=== PATIENT | female | born 1990 | race Caucasian/White ===

== ENCOUNTER → 2017-08-16 09:42 | Outpatient (CLI) | payer OTHER, SELFPAY ==
--- NOTE | 2017-08-16 | DI.US.S_ITS ---
PROCEDURE: US OB >= 14 WEEKS FETUS INDICATIONS: 20 WEEK ANATOMICAL SURVEY OUTSIDE/PRIOR DATING DATA: Last menstrual period (LMP): 04/03/17. LMP-based estimated date of delivery (AMARIS): 01/08/18. First dating scan (date and location): 08/16/17. Estimated date of delivery (AMARIS) from first dating scan: 12/29/17. TECHNIQUE: Real-time scanning was performed of the fetus, with image documentation and biometric measurements. Endovaginal scanning: No COMPARISON: None. FINDINGS: General: A single living intrauterine gestation is present. Presentation: Breech Placenta: Placental position is anterior, without previa. Amniotic fluid index: 17.3 cm cm, normal range is 5-24 cm. heart rate: 152 beats per minute. Maternal cervical canal: 3.1 cm long. Normal lower limit is 2.5 cm. biometrics: Biparietal diameter: 20 weeks 3 days Head circumference: 20 weeks 1 day Abdominal circumference: 22 weeks 2 days Femur length: 19 weeks 5 days Estimated gestational age from initial scan: not applicable. Composite gestational age from present scan: 20 weeks 5 days Estimated weight and percentile: 389 g Measurement variability for biometric dating: +/- 7 days from 14 weeks to 15 weeks 6 days gestation, +/- 10 days from 16 weeks to 21 weeks 6 days gestation, +/- 2 weeks from 22 weeks to 27 weeks 6 days gestation, +/- 3 weeks for 28 weeks gestation or later. weight reference: 4500 g or EFW >90/95% is considered macrosomia or large for gestational age. EFW <10% is small for gestational age. EFW 5% or less is considered intra-uterine growth restriction. Anatomic survey: Neuro: Ventricles are non-dilated at less than 10 mm. Cisterna magna is normal at 3-11 mm. Cerebellum is normal in size and morphology. Nuchal skin fold: Normal at less than 6 mm between 14-21 weeks gestational age. Face: Nose and lips, facial profile are normal. Spine: No evidence for spina bifida. Heart: 4-chambered heart is present, with normal ventricular outflow tracts. Diaphragm: Diaphragm is intact. Stomach: Left-sided stomach is present. Kidneys: No hydronephrosis. Normal is less than 5 mm in 2nd trimester, less than 7 mm in 3rd trimester. Cord: 3-vessel cord has orthotopic insertion. Bladder: Normal in size. Extremities: All 4 extremities identified. IMPRESSION: 1. Single living IUP present with mean gestational age of 20 weeks 5 days. 2. Normal anatomy. Dictated by: Arnav DARDEN Interpreted: Mendoza Stratton MD on 08/17/2017 at 8:29 Approved by: Preston Stratton M.D. on 08/20/2017 at 13:01
== END ==
PROVIDERS: PCP Family Medicine; Visit Provider Family Medicine
DX: Z34.92 Encounter for supervision of normal pregnancy, unspecified, second trimester (principal); Z3A.20 20 weeks gestation of pregnancy
CPT/HCPCS: 76811

== ENCOUNTER → 2017-09-27 09:40 | Outpatient (CLI) | payer OTHER, SELFPAY ==
[2017-09-27 11:57] LABS: Hematocrit 36.6 % (36-46); Hemoglobin 12.5 g/dL (12.0-16.0)
[2017-09-27 12:15] LABS: GTT (PREG) 1 Hour PP 50gm Dose 90 mg/dL (76-139)
== END ==
PROVIDERS: PCP Family Medicine; Visit Provider Family Medicine
DX: Z34.90 Encounter for supervision of normal pregnancy, unspecified, unspecified trimester (principal)
CPT/HCPCS: 36415; 82950; 85014; 85018

== ENCOUNTER → 2017-12-07 14:55 | Outpatient (CLI) | payer OTHER, SELFPAY ==
[2017-12-08 16:30] LABS: Strep Grp B PCR POS for Grp B Strep
== END ==
PROVIDERS: PCP Family Medicine; Visit Provider Family Medicine
DX: Z34.93 Encounter for supervision of normal pregnancy, unspecified, third trimester (principal); Z3A.36 36 weeks gestation of pregnancy
CPT/HCPCS: 87653

== ENCOUNTER 2018-01-04 21:25 | Inpatient (IN) | payer OTHER, SELFPAY ==
[2018-01-04 22:06] LABS: Add Manual Diff / Slide Review NO; Basophils Percent Auto 0.5 % (0-2); Eosinophils Percent Auto 0.2 % (2-4); Hematocrit 36.7 % (36-46); Hemoglobin 12.5 g/dL (12.0-16.0); Lymphocytes Percent Auto 22.9 % (25-40); Mean Corpuscular Hemoglobin 29.6 PG (26-34); Mean Corpuscular Volume 87.2 fL (80-100); Neutrophils Absolute Auto 10700 /uL (3000-5900); Neutrophils Percent Auto 69.4 % (50-75); Platelet Count 190 X10^3/uL (150-400); Red Blood Cell Count 4.21 X10^6/uL (4.0-5.2); Red Cell Distribution Width 13.7 % (11.6-14.8); White Blood Cell Count 15.4 X10^3/uL (4.5-11.0)
[2018-01-04] MEDS: PENICILLIN G POTASSIUM 5,000,000 UNIT in DEXTROSE 5% IN WATER 250 ML IV (22:35)
[2018-01-04] MEDS: LACTATED RINGERS 1,000 ML 100 ML IV (22:36)
--- NOTE | 2018-01-05 01:43 | P.HPOB_ITS ---
OB HPI Date/Time Date of admission: 01/04/18 Date Patient Seen: 01/05/18 Time Patient Seen: 01:00 History of Present Condition Chief complaint: : 3 Para: 2 Estimated Date of Delivery: 01/03/18 Estimated Gestational Age (weeks): 40w2d Narrative: Irene Ramsay is a 27 year old at 40w2d who presented in active labor. The pt reports contractions starting at 7:30pm, and increasing rapidly in frequency and intensity. She denied any LOF at home or vaginal bleeding. History of Present care: good care Dating criteria: based on 1st trimester US only (LMP discordant) Ultrasounds: normal mid trimester US Obstetrical complications: none Medical complications: none Preadmission Labs Blood type: O (+) positive -: Antibody screen: negative, GBS status: positive, HBsAG: negative, HIV: negative, HSV 1: positive, HSV 2: negative and RPR/VDLR: negative -: Chlamydia screen: not detected and Gonorrhea screen: not detected -: Rubella: immune and Varicella: immune HCT: 36.6 PAP: Normal Integrated screen: negative 1 hr GTT: 90 Prior (ies) History: 10/27/11 at 40wks, 8lb8oz boy with hemorrhage 12/08/13 at 40wks, 7lb8oz boy without complications Evaluation Evaluation Baseline heart rate: 130 Variability: Moderate (11-25) monitor accelerations: Present monitor decelerations: Absent Contraction Frequency (minutes): 4 Uterine Contraction Intensity: Strong/Firm Category of Tracing: I Cervical dilation (cm): 10 Cervical effacement (%): 100 station: +2 Laboratory results: Laboratory Tests 01/04/18 01/04/18 21:50 21:50 WBC 15.4 H RBC 4.21 Hgb 12.5 Hct 36.7 MCV 87.2 MCH 29.6 MCHC 34.0 RDW 13.7 Plt Count 190 Neut % (Auto) 69.4 Lymph % (Auto) 22.9 L Brantley % (Auto) 7.0 Eos % (Auto) 0.2 L Baso % (Auto) 0.5 Neut # (Auto) 85744 H Blood Type O Positive Antibody Screen Negative PFSH Family History Grandfather Lymph node cancer Grandfather Cancer of kidney Meds Home Medications Medication Instructions Recorded Confirmed Type vit-iron fum-folic ac 1 cap PO QDAY #0 06/19/17 History [Mynatal] Allergies Allergy/AdvReac Type Severity Reaction Status Date / Time No Known Allergies Allergy Uncoded 07/11/17 12:49 Exam Const General: cooperative, healthy appearing, comfortable and well developed Resp Effort & Inspection: normal respiratory effort and able to speak in complete sentences Auscultation: clear to auscultation bilaterally Cardio Rate: regular rate Rhythm: regular rhythm Heart Sounds: no murmurs GI Palpation: soft and No tender Objective Labs Result Diagrams: 01/04/18 21:50 Labs: Laboratory Results - last 24 hr 01/04/18 01/04/18 21:50 21:50 WBC 15.4 H RBC 4.21 Hgb 12.5 Hct 36.7 MCV 87.2 MCH 29.6 MCHC 34.0 RDW 13.7 Plt Count 190 Neut % (Auto) 69.4 Lymph % (Auto) 22.9 L Brantley % (Auto) 7.0 Eos % (Auto) 0.2 L Baso % (Auto) 0.5 Neut # (Auto) 70714 H Blood Type O Positive Antibody Screen Negative Assessment and Plan (1) 40 weeks gestation of : Current visit: Yes Status: Acute Plan: Plan: 27yo at 40w2d who presented in active labor. No complications with . Rh positive, GBS positive. - Expectant management, anticipate - GBS positive, penicillin prophylaxis started at time of admission - Epidural for pain control in place and working well - FHT reassuring
--- NOTE | 2018-01-05 03:20 | P.PCNOB_ITS ---
Delivery date: 01/05/18 Intrapartal events: None Induction method: none Delivery monitor: external FHT Route of delivery: Episiotomy description: None Laceration description: Perineal - 2nd Degree Delivery repair: chromic Estimated blood loss (mL): 300 Anesthesia type: Epidural Complications: None Narrative: PROCEDURE: G 3 P 2 at 40 weeks 2 days presented in active labor and was admitted to Labor and Delivery. The patient progressed through the 1st stage over 6.5 hours. Pain was controlled with an epidural. The patient progressed through the 2nd stage over 1.5 hours and delivered a viable male with APGARs 9/9 at 2:38 via spontaneous vaginal delivery. The perineum and vagina were inspected with second-degree perineal laceration repaired with 3 -0 chromic. PREPROCEDURE DIAGNOSIS: Intrauterine at 40 weeks 2 days GBS positive RH positive POSTPROCEDURE DIAGNOSIS: Intrauterine at 40 week 2 day, delivered Same as preprocedure PROCEDURE: Spontaneous vaginal delivery LABOR AUGMENTATION: None ROM APPEARANCE: Clear BABY A DELIVERY TIME: 2:38 a.m. BABY A OUTCOME: Viable BABY A WEIGHT: 8 lb 9.53 oz (3899g) BABY A NUCHAL CORD: No BABY A CORD GASES OBTAINED: No PLACENTA DELIVERY TIME: 2:43 a.m. PLACENTA APPEARANCE: Intact Baby 1: Infant gender: Male Presentation: vertex position: Right Occiput Anterior Placenta delivery description: Spontaneous cord vessel description: 3 Vessels score (1 min): 9 score (5 min): 9 Plan for aftercare: Normal care support
[2018-01-05 04:26] VITALS: BP 120/68
[2018-01-05] MEDS: IBUPROFEN 600 MG TABLET PO (09:28)
[2018-01-05] MEDS: PRENATAL VIT,CALC/IRON/FOLIC 1 TABLET 1 TAB PO (09:29)
[2018-01-06] MEDS: PRENATAL VIT,CALC/IRON/FOLIC 1 TABLET 1 TAB PO (08:38)
--- NOTE | 2018-01-06 09:14 | PM.OBDS.1 ---
Discharge Providers Date of admission: 01/04/18 21:25 Primary care physician: Sharon Alarcon MD Consults: 01/05/18 04:43 Consult to Vegetable Harvest Worker Routine Comment: Discharge provider: Alma Mckinley MD Discharge Date: 01/06/18 Summary Date Patient Seen: 01/06/18 Time Patient Seen: 09:00 Hospital Course: The patient presented in active labor. She received an epidural for pain control. She had a spontaneous vaginal delivery of a viable baby boy weighing 8 lb 9.5 oz on 01/05/18. She was GBS positive, and received adequate penicillin prophylaxis. , there were no complications. The patient was voiding, passing flatus, and ambulating without difficulty at the time of discharge. She was breast-feeding without difficulty. Her lochia was decreasing appropriately. She is undecided regarding control, however will likely want an IUD which she has used in the past. Peripartum Data Delivery Method: Natural Vaginal Laceration description: Perineal - 2nd Degree Episiotomy description: None Procedures: Spontaneous vaginal delivery complications: none 1: Gender: Male Disposition of : home Discharge Diagnosis (1) 40 weeks gestation of : Status: Acute (2) Spontaneous vaginal delivery: Status: Acute Status at Discharge Functional status at discharge: independent ambulation Overall status at discharge: patient is progressing back to baseline Time Spent with Patient Total time spent providing and/or coordinating discharge services: Greater than 30 minutes Objective Labs Result Diagrams: 01/04/18 21:50 Discharge Plan Discharge Plan Patient Disposition: Home Discharge Med Rec/Prescriptions Prescriptions: New acetaminophen 325 mg Tablet 650 mg PO Q6HR PRN (Reason: Pain, Mild (1-3)) Qty: 30 RF: 0 benzocaine-menthol [Dermoplast (with menthol)] 20-0.5 % Aerosol 1 spray Topical Q1HR PRN (Reason: perineal pain) Qty: 15 RF: 0 ibuprofen 600 mg Tablet 600 mg PO Q6HR PRN (Reason: Pain, Mild (1-3)) Qty: 30 RF: 0 lanolin [[id number]] Cream 1 applic Topical PRN PRN (Reason: Tenderness) Qty: 15 RF: 0 Continue vit-iron fum-folic ac [Mynatal] 1 EACH capsule 1 cap PO QDAY Qty: 0 RF: 0 Follow up/Referrals: Alma Mckinley MD [Physician] - 6 Weeks Provider Discharge Instructions Diet: Regular Activity: No intercourse for 6 weeks Skin/Wound/Dressing Care Report to your healthcare provider any signs of infection, such as:: chills, fever, increased pain and unusual drainage Visit Report/Discharge Packet Instructions: DI for Labor and Delivery, Vaginal Discharge Data Primary Care Provider: Sharon Alarcon Attending Provider: Alma Mckinley Admit Date/Time: 01/04/18 21:25
--- NOTE | 2018-01-06 09:17 | P.DS_ITS ---
Discharge Providers Date of admission: 01/04/18 21:25 Primary care physician: Sharon Alarcon MD Consults: 01/05/18 04:43 Consult to Machine Precision Etcher Routine Comment: Discharge provider: Alma Mckinley MD Discharge Date: 01/06/18 Summary Date Patient Seen: 01/06/18 Time Patient Seen: 09:00 Hospital Course: The patient presented in active labor. She received an epidural for pain control. She had a spontaneous vaginal delivery of a viable baby boy weighing 8 lb 9.5 oz on 01/05/18. She was GBS positive, and received adequate penicillin prophylaxis. , there were no complications. The patient was voiding , passing flatus, and ambulating without difficulty at the time of discharge. She was breast-feeding without difficulty. Her lochia was decreasing appropriately. She is undecided regarding control, however will likely want an IUD which she has used in the past. Peripartum Data Delivery Method: Natural Vaginal Laceration description: Perineal - 2nd Degree Episiotomy description: None Procedures: Spontaneous vaginal delivery complications: none 1: Gender: Male Disposition of : home Discharge Diagnosis (1) 40 weeks gestation of : Status: Acute (2) Spontaneous vaginal delivery: Status: Acute Status at Discharge Functional status at discharge: independent ambulation Overall status at discharge: patient is progressing back to baseline Time Spent with Patient Total time spent providing and/or coordinating discharge services: Greater than 30 minutes Objective Labs Result Diagrams: 01/04/18 21:50 Discharge Plan Discharge Plan Patient Disposition: Home Discharge Med Rec/Prescriptions Prescriptions: New acetaminophen 325 mg Tablet 650 mg PO Q6HR PRN (Reason: Pain, Mild (1-3)) Qty: 30 RF: 0 benzocaine-menthol [Dermoplast (with menthol)] 20-0.5 % Aerosol 1 spray Topical Q1HR PRN (Reason: perineal pain) Qty: 15 RF: 0 ibuprofen 600 mg Tablet 600 mg PO Q6HR PRN (Reason: Pain, Mild (1-3)) Qty: 30 RF: 0 lanolin [[id number]] Cream 1 applic Topical PRN PRN (Reason: Tenderness) Qty: 15 RF: 0 Continue vit-iron fum-folic ac [Mynatal] 1 EACH capsule 1 cap PO QDAY Qty: 0 RF: 0 Follow up/Referrals: Alma Mckinley MD [Physician] - 6 Weeks Provider Discharge Instructions Diet: Regular Activity: No intercourse for 6 weeks Skin/Wound/Dressing Care Report to your healthcare provider any signs of infection, such as:: chills, fever, increased pain and unusual drainage Visit Report/Discharge Packet Instructions: DI for Labor and Delivery, Vaginal Discharge Data Primary Care Provider: Sharon Alarcon Attending Provider: Alma Mckinley Admit Date/Time: 01/04/18 21:25
[2018-01-06 09:32] VITALS: BP 120/73; PULSE 82; RESP 16; TEMP 36.3
== END 2018-01-06 10:50 | disposition home or self-care (01) | DRG 807 ==
PROVIDERS: Admitting Provider Family Medicine; PCP Family Medicine; Visit Provider Family Medicine
DX: O99.824 Streptococcus B carrier state complicating childbirth (principal); Z37.0 Single live birth; Z3A.40 40 weeks gestation of pregnancy; O70.1 Second degree perineal laceration during delivery
CPT/HCPCS: 01967; 59050; 59400; 85025; 86850; 86900; 86901; G0379; J2540

== ENCOUNTER → 2019-10-17 12:18 | Outpatient (CLI) | payer OTHER, SELFPAY ==
--- NOTE | 2019-10-17 12:19 | DI.US.S_ITS ---
PROCEDURE: US OB LIMITED INDICATIONS: DATES OUTSIDE/PRIOR DATING DATA: Last menstrual period (LMP): 07/07/2019. LMP-based estimated date of delivery (AMARIS): 04/12/2020 . First dating scan (date and location): 10/17/2019 . Estimated date of delivery (AMARIS) from first dating scan: 04/09/2020 . TECHNIQUE: Real-time scanning was performed of the fetus, with image documentation and biometric measurements. Endovaginal scanning: No COMPARISON: [facility], [facility], 10/27/2011, 7:59. FINDINGS: General: A single living intrauterine gestation is present. Presentation: Vertex. Placenta: Placental position is anterior , without previa. Amniotic fluid index: Subjectively normal. heart rate: 145 beats per minute. Maternal cervical canal: 3.2 cm long. Normal lower limit is 2.5 cm. biometrics: Biparietal diameter: 14 weeks 6 days Head circumference: 15 weeks 1 day Abdominal circumference: 15 weeks 4 days Femur length: 14 weeks 3 days Estimated gestational age from initial scan: not applicable. Composite gestational age from present scan: 15 weeks 0 days Estimated weight and percentile: N/a Measurement variability for biometric dating: +/- 7 days from 14 weeks to 15 weeks 6 days gestation, +/- 10 days from 16 weeks to 21 weeks 6 days gestation, +/- 2 weeks from 22 weeks to 27 weeks 6 days gestation, +/- 3 weeks for 28 weeks gestation or later. weight reference: 4500 g or EFW >90/95% is considered macrosomia or large for gestational age. EFW <10% is small for gestational age. EFW 5% or less is considered intra-uterine growth restriction. Other: Not applicable. IMPRESSION: Single living IUP with mean composite gestational age of 15 weeks corresponding to ultrasound AMARIS of 04/09/2020. Follow-up anatomic survey recommended. Dictated by: Arnav DARDEN Interpreted: Ema Alaniz MD on 10/17/2019 at 13:14 Approved by: Ema Alaniz M.D. on 10/17/2019 at 15:17
== END ==
PROVIDERS: PCP Family Medicine; Referring Provider Family Medicine; Visit Provider Family Medicine
DX: Z36.87 Encounter for antenatal screening for uncertain dates (principal); Z3A.15 15 weeks gestation of pregnancy
CPT/HCPCS: 76815

== ENCOUNTER → 2019-10-20 14:49 | Outpatient (CLI) | payer OTHER, SELFPAY ==
[2019-10-20 17:48] LABS: Add Manual Diff / Slide Review NO; Basophils Absolute Auto 0 /uL (0-100); Basophils Percent Auto 0.4 % (0-2); Eosinophils Absolute Auto 100 /uL (0-450); Eosinophils Percent Auto 0.8 % (2-4); Hemoglobin 12.3 g/dL (12.0-16.0); Lymphocytes Absolute Auto 2100 /uL (1100-4500); Lymphocytes Percent Auto 21.2 % (25-40); Mean Corpuscular HGB Conc 35.2 % (30-36); Monocytes Absolute Auto 600 /uL (0-900); Monocytes Percent Auto 6.1 % (3-14); Neutrophils Absolute Auto 7000 /uL (1500-7000); Neutrophils Percent Auto 71.5 % (50-75); Platelet Count 202 X10^3/uL (150-400); Red Blood Cell Count 3.98 X10^6/uL (4.0-5.2); Red Cell Distribution Width 13.2 % (11.6-14.8); White Blood Cell Count 9.8 X10^3/uL (4.5-11.0)
[2019-10-20 19:11] LABS: Hepatitis B Surface Antigen NEGATIVE s/c (NEGATIVE); Rubella Antibody IgG 16.6 IU/mL (>15)
[2019-10-20 19:28] LABS: HIV 1 & 2 Ab/Ag 4th Gen Combo NEGATIVE (NEGATIVE); Hep C Virus Ab w/Reflex Quant NEGATIVE s/c (NEGATIVE)
[2019-10-20 19:42] LABS: Appearance Urine UA CLEAR; Bilirubin Urine UA NEGATIVE (NEGATIVE); Color Urine UA YELLOW; Glucose Urine UA NEGATIVE (Negative); Ketones Urine UA NEGATIVE (NEGATIVE); Leukocyte Esterase Urine UA NEGATIVE (NEGATIVE); Nitrite Urine UA NEGATIVE (Negative); Occult Blood Urine UA NEGATIVE (Negative); Protein Urine UA NEGATIVE (Negative); Specific Gravity Urine UA >=1.030 (1.000-1.035); Urobilinogen Urine UA 0.2 E.U./dL (0.2)
[2019-10-21 04:36] LABS: RPR Screen Non Reactive (Non Reactive)
[2019-10-21 05:13] LABS: Varicella IgG Antibody 1478 index (Immune >165)
== END ==
PROVIDERS: PCP Family Medicine; Referring Provider Family Medicine; Visit Provider Family Medicine
DX: Z34.82 Encounter for supervision of other normal pregnancy, second trimester (principal)
CPT/HCPCS: 36415; 80055; 81003; 86787; 86803; 86850; 86900; 86901; 87086; 87389

== ENCOUNTER → 2019-11-27 12:40 | Outpatient (CLI) | payer OTHER, SELFPAY ==
--- NOTE | 2019-11-27 12:41 | DI.US.S_ITS ---
PROCEDURE: US OB >= 14 WEEKS FETUS INDICATIONS: ANATOMY SCAN OUTSIDE/PRIOR DATING DATA: Last menstrual period (LMP): 07/07/19. LMP-based estimated date of delivery (AMARIS): 04/12/20 . First dating scan (date and location): 10/17/19 . Estimated date of delivery (AMARIS) from first dating scan: 04/09/20 . TECHNIQUE: Real-time scanning was performed of the fetus, with image documentation and biometric measurements. Endovaginal scanning: Not needed COMPARISON: [facility], OB >= 14 WEEKS FETUS, 08/16/2017, 9:57. FINDINGS: General: A single living intrauterine gestation is present. Presentation: Vertex. Placenta: Placental position is anterior, without previa. Amniotic fluid index: 13.8 cm, normal range is 5-24 cm. heart rate: 150 beats per minute. Maternal cervical canal: 3.5 cm long. Normal lower limit is 2.5 cm. biometrics: Biparietal diameter: 5.0 cm, 21 weeks 1 day Head circumference: 19.7 cm, 21 weeks 0 days Abdominal circumference: 15.7 cm, 20 weeks 6 days Femur length: 3.4 cm, 20 weeks 3 days Estimated gestational age from initial scan: 20 weeks 6 days Composite gestational age from present scan: 20 weeks 6 days Estimated weight and percentile: 373 g, 38th percentile Anatomic survey: Neuro: Ventricles are non-dilated at less than 10 mm. Cisterna magna is normal at 3-11 mm. Cerebellum is normal in size and morphology. Nuchal skin fold: Normal at less than 6 mm between 14-21 weeks gestational age. Face: Nose and lips, facial profile are normal. Spine: No evidence for spina bifida. Heart: 4-chambered heart is present, with normal ventricular outflow tracts. Diaphragm: Diaphragm is intact. Stomach: Left-sided stomach is present. Kidneys: No hydronephrosis. Normal is less than 5 mm in 2nd trimester, less than 7 mm in 3rd trimester. Cord: 3-vessel cord has orthotopic insertion. Bladder: Normal in size. Extremities: All 4 extremities identified. IMPRESSION: Single living intrauterine gestation with normal survey of anatomy and appropriate interval growth. The delivery date is projected to be centered on 04/09/20. Dictated by: Anatoliy Ozuna M.D. on 11/27/2019 at 14:01 Approved by: Anatoliy Ozuna M.D. on 11/27/2019 at 14:08
== END ==
PROVIDERS: PCP Family Medicine; Referring Provider Family Medicine; Visit Provider Family Medicine
DX: Z36.89 Encounter for other specified antenatal screening (principal); Z3A.20 20 weeks gestation of pregnancy
CPT/HCPCS: 76811

== ENCOUNTER → 2020-01-21 15:40 | Outpatient (CLI) | payer OTHER, SELFPAY ==
--- NOTE | 2020-01-21 15:41 | DI.US.S_ITS ---
PROCEDURE: US OB LIMITED INDICATIONS: size > dates, growth and INOCENCIO OUTSIDE/PRIOR DATING DATA: Last menstrual period (LMP): 07/07/19. LMP-based estimated date of delivery (AMARIS): 04/12/20 First dating scan (date and location): 10/17/19 Estimated date of delivery (AMARIS) from first dating scan: 04/09/20 TECHNIQUE: Real-time scanning was performed of the fetus, with image documentation and biometric measurements. Endovaginal scanning: Not needed COMPARISON: [facility], OB LIMITED, 10/17/2019, 12:27. [facility], [facility], 10/27/2011, 7:59. FINDINGS: General: A single living intrauterine gestation is present. Presentation: Vertex. Placenta: Placental position is anterior , without previa. Amniotic fluid index: 15.6 cm, normal range is 5-24 cm. heart rate: 155 beats per minute. Maternal cervical canal: 4.1 cm long. Normal lower limit is 2.5 cm. biometrics: Biparietal diameter: 7.3 cm, 29 weeks 3 days Head circumference: 26.8 cm, 29 weeks 2 days Abdominal circumference: 24.9 cm, 29 weeks 1 day Femur length: 5.6 cm, 29 weeks 2 days Estimated gestational age from initial scan: 28 weeks 5 days. Composite gestational age from present scan: 29 weeks 2 days Estimated weight and percentile: 1357 g, 57th percentile Measurement variability for biometric dating: +/- 7 days from 14 weeks to 15 weeks 6 days gestation, +/- 10 days from 16 weeks to 21 weeks 6 days gestation, +/- 2 weeks from 22 weeks to 27 weeks 6 days gestation, +/- 3 weeks for 28 weeks gestation or later. weight reference: 4500 g or EFW >90/95% is considered macrosomia or large for gestational age. EFW <10% is small for gestational age. EFW 5% or less is considered intra-uterine growth restriction. Other: Not applicable. IMPRESSION: Appropriate interval growth, no anomaly seen. Normal amniotic fluid volume. The estimated gestational age from 1st OB ultrasound and the current study are within measurement variability. The delivery date is projected to be centered on 04/09/20. Dictated by: Anatoliy Ozuna M.D. on 01/21/2020 at 17:15 Approved by: Anatoliy Ozuna M.D. on 01/21/2020 at 17:18
[2020-01-21 18:03] LABS: Hemoglobin 11.7 g/dL (12.0-16.0)
[2020-01-21 18:15] LABS: GTT (PREG) 1 Hour PP 50gm Dose 82 mg/dL (76-139)
== END ==
PROVIDERS: PCP Family Medicine; Referring Provider Family Medicine; Visit Provider Family Medicine
DX: O26.843 Uterine size-date discrepancy, third trimester (principal); Z3A.29 29 weeks gestation of pregnancy
CPT/HCPCS: 36415; 76815; 82950; 85014; 85018

== ENCOUNTER → 2020-03-16 12:53 | Outpatient (CLI) | payer OTHER, SELFPAY ==
--- NOTE | 2020-03-16 12:54 | DI.US.S_ITS ---
PROCEDURE: US OB LIMITED INDICATIONS: growth u/s, size < dates OUTSIDE/PRIOR DATING DATA: Last menstrual period (LMP): 07/07/2019. LMP-based estimated date of delivery (AMARIS): 04/12/2020 . First dating scan (date and location): 10/17/2019 . Estimated date of delivery (AMARIS) from first dating scan: 04/09/2020 . TECHNIQUE: Real-time scanning was performed of the fetus, with image documentation and biometric measurements. Endovaginal scanning: No COMPARISON: [facility], OB LIMITED, 01/21/2020, 16:04. FINDINGS: General: A single living intrauterine gestation is present. Presentation: Vertex. Placenta: Placental position is anterior , without previa. Amniotic fluid index: 23.0 cm, normal range is 5-24 cm. heart rate: 131 beats per minute. Maternal cervical canal: Not well seen. biometrics: Biparietal diameter: 37 weeks 6 days Head circumference: 38 weeks 1 day Abdominal circumference: 39 weeks 2 days Femur length: 37 weeks 5 days Estimated gestational age from initial scan: 36 weeks 4 days Composite gestational age from present scan: 38 weeks 2 days Estimated weight and percentile: 3553 g; 95th percentile Measurement variability for biometric dating: +/- 7 days from 14 weeks to 15 weeks 6 days gestation, +/- 10 days from 16 weeks to 21 weeks 6 days gestation, +/- 2 weeks from 22 weeks to 27 weeks 6 days gestation, +/- 3 weeks for 28 weeks gestation or later. weight reference: 4500 g or EFW >90/95% is considered macrosomia or large for gestational age. EFW <10% is small for gestational age. EFW 5% or less is considered intra-uterine growth restriction. Other: Not applicable. IMPRESSION: Single living fetus redemonstrated and interval growth is greater than normal with estimated weight 95th percentile. Macrosomia cannot be excluded. Amniotic fluid index at the upper limits of normal. Dictated by: Arnav DARDEN Interpreted: Tricia Mcintyre MD on 03/16/2020 at 15:37 Approved by: Tricia Mcintyre M.D. on 03/16/2020 at 16:27
== END ==
PROVIDERS: PCP Family Medicine; Referring Provider Family Medicine; Visit Provider Family Medicine
DX: O26.843 Uterine size-date discrepancy, third trimester (principal); Z3A.38 38 weeks gestation of pregnancy
CPT/HCPCS: 76815

== ENCOUNTER → 2020-03-19 15:03 | Outpatient (CLI) | payer OTHER, SELFPAY ==
[2020-03-20 15:01] LABS: Strep Grp B PCR POS for Grp B Strep
== END ==
PROVIDERS: PCP Family Medicine; Visit Provider Family Medicine
DX: Z34.83 Encounter for supervision of other normal pregnancy, third trimester (principal); Z3A.36 36 weeks gestation of pregnancy
CPT/HCPCS: 87653

== ENCOUNTER → 2020-04-01 09:48 | Outpatient (CLI) | payer OTHER, SELFPAY ==
--- NOTE | 2020-04-01 09:51 | DI.US.S_ITS ---
PROCEDURE: US OB LIMITED INDICATIONS: LARGE FOR GESTATIONAL AGE OUTSIDE/PRIOR DATING DATA: Last menstrual period (LMP): 07/07/2019. LMP-based estimated date of delivery (AMARIS): 04/12/2020 . First dating scan (date and location): 10/17/2019 . Estimated date of delivery (AMARIS) from first dating scan: 04/09/2020 . TECHNIQUE: Real-time scanning was performed of the fetus, with image documentation and biometric measurements. Endovaginal scanning: No COMPARISON: [facility], OB LIMITED, 03/16/2020, 13:12. FINDINGS: General: A single living intrauterine gestation is present. Presentation: Vertex. Placenta: Placental position is anterior , without previa. Amniotic fluid index: 21.7 cm, normal range is 5-24 cm. heart rate: 128 beats per minute. Maternal cervical canal: 3.6 cm long. Normal lower limit is 2.5 cm. biometrics: Biparietal diameter: 41 weeks 4 days Head circumference: Greater than 41 weeks. Abdominal circumference: 38 weeks 6 days Femur length: 36 weeks 5 days Estimated gestational age from initial scan: 38 weeks 6 days Composite gestational age from present scan: 39 weeks Estimated weight and percentile: 3769 g; 80th percentile Measurement variability for biometric dating: +/- 7 days from 14 weeks to 15 weeks 6 days gestation, +/- 10 days from 16 weeks to 21 weeks 6 days gestation, +/- 2 weeks from 22 weeks to 27 weeks 6 days gestation, +/- 3 weeks for 28 weeks gestation or later. weight reference: 4500 g or EFW >90/95% is considered macrosomia or large for gestational age. EFW <10% is small for gestational age. EFW 5% or less is considered intra-uterine growth restriction. Other: Not applicable. IMPRESSION: 1. Single living IUP redemonstrated and interval growth is upper limits of normal. Dictated by: Arnav Westfall [facility] Interpreted: Ema Alaniz MD on 04/01/2020 at 11:51 Approved by: Ema Alaniz M.D. on 04/01/2020 at 12:20
== END ==
PROVIDERS: PCP Family Medicine; Referring Provider Family Medicine; Visit Provider Family Medicine
DX: Z36.88 Encounter for antenatal screening for fetal macrosomia (principal); Z3A.38 38 weeks gestation of pregnancy
CPT/HCPCS: 76815

== ENCOUNTER 2020-04-16 07:34 | Inpatient (IN) | payer OTHER, SELFPAY ==
[2020-04-16] MEDS: PENICILLIN G POTASSIUM 5,000,000 UNIT in DEXTROSE 5% IN WATER 250 ML IV (08:38)
[2020-04-16] MEDS: LACTATED RINGERS 1,000 ML 100 ML IV ×2 (08:38→14:19)
[2020-04-16 08:44] LABS: Add Manual Diff / Slide Review NO; Basophils Absolute Auto 100 /uL (0-100); Basophils Percent Auto 0.5 % (0-2); Eosinophils Absolute Auto 100 /uL (0-450); Eosinophils Percent Auto 0.6 % (2-4); Hematocrit 35.6 % (36-46); Lymphocytes Absolute Auto 2000 /uL (1100-4500); Lymphocytes Percent Auto 18.2 % (25-40); Mean Corpuscular HGB Conc 33.6 % (30-36); Mean Corpuscular Hemoglobin 30.5 PG (26-34); Mean Corpuscular Volume 90.8 fL (80-100); Monocytes Absolute Auto 700 /uL (0-900); Monocytes Percent Auto 6.5 % (3-14); Neutrophils Absolute Auto 8200 /uL (1500-7000); Neutrophils Percent Auto 74.2 % (50-75); Platelet Count 189 X10^3/uL (150-400); Red Blood Cell Count 3.92 X10^6/uL (4.0-5.2); Red Cell Distribution Width 13.4 % (11.6-14.8); White Blood Cell Count 11.1 X10^3/uL (4.5-11.0)
[2020-04-16 08:58] LABS: COVID19 -Nasal RAPID Negative (Negative)
[2020-04-16] MEDS: OXYTOCIN PREMIX 30 UNIT/500 ML PLAST..BAG IV (09:43)
[2020-04-16 11:58] VITALS: BP 113/70
[2020-04-16] MEDS: PENICILLIN G POTASSIUM 3,000,000 UNIT/50 ML FROZ.PIGGY 100 UNIT IV (12:47)
--- NOTE | 2020-04-16 12:50 | PM.OBPNLAB ---
Date/Time Date Patient Seen: 04/16/20 Time Patient Seen: 12:50 Pain Control Pain control: tolerating well Pelvic Exam Dilation (cm): 4 Effacement (%): 90 station: 0 Amniotic membrane status: Ruptured Comments: After informed consent, AROM performed with production of clear fluid. Contractions Monitor mode: External Pitocin rate (mU/min): 9 Contraction frequency (min): 4 Contraction pattern: Irregular Contraction intensity: Moderate Status status: Category l Heart Rate Baseline: 130 Monitor Accelerations: Present Monitor Decelerations: Absent Monitor Variability: Moderate Assessment and Plan Comments: 30yo at 40w4d here for elective post-dates IOL. No complications with . AROM with clear fluid present. Rh positive, GBS positive. - Expectant management, anticipate - GBS positive, continue penicillin prophylaxis - Continue pitocin, titrate as tolerated - FHT reassuring - Epidural when desired
--- NOTE | 2020-04-16 13:08 | P.HPOB_ITS ---
OB HPI Date/Time Date of admission: 04/16/20 Date Patient Seen: 04/16/20 Time Patient Seen: 07:45 History of Present Condition Chief complaint: Induction : 4 Para: 3 Estimated Date of Delivery: 04/12/20 Estimated Gestational Age (weeks): 40w4d Narrative: Irene Ramsay is a 30 year old at 40w4d here for elective post-dates IOL. The pt reports mild cramping, no regular contractions, vaginal bleeding, or LOF. She has been feeling well. Her has been uncomplicated. Indications Indication for induction OB: post dates History of Present care: initiated at week # (15) and pounds weight gain (38) Dating criteria: LMP confirmed by 1st trimester US Preadmission Labs Blood type: O (+) positive -: Antibody screen: negative, GBS status: positive, HBsAG: negative, HIV: ne gative and RPR/VDLR: negative -: Rubella: immune and Varicella: immune HCT: 35.6 HCAB: negative 1 hr GTT: 82 Prior (ies) History: 10/27/11 - 40wks, , 8lb8oz male 12/08/13 - 40wks, , 7lb8oz male 01/15/18 - 40w2d, , 8lb9oz male Evaluation Evaluation Baseline heart rate: 130 Variability: Moderate (11-25) monitor accelerations: Present monitor decelerations: Absent Status: Category l Cervical dilation (cm): 3 Cervical effacement (%): 50 station: 0 Laboratory results: Laboratory Tests 04/16/20 04/16/20 04/16/20 08:20 08:20 08:20 WBC 11.1 H RBC 3.92 L Hgb 12.0 Hct 35.6 L MCV 90.8 MCH 30.5 MCHC 33.6 RDW 13.4 Plt Count 189 Neut % (Auto) 74.2 Lymph % (Auto) 18.2 L [place] % (Auto) 6.5 Eos % (Auto) 0.6 L Baso % (Auto) 0.5 Neut # (Auto) 8200 H Lymph # (Auto) 2000 [place] # (Auto) 700 Eos # (Auto) 100 Baso # (Auto) 100 SARS-CoV-2 (PCR) Negative Blood Type O Positive Antibody Screen Negative PFSH Medical History (Updated 03/19/20 @ 15:35 by Alma Mckinley MD) HSV-1 (herpes simplex virus 1) infection Migraine (spontaneous vaginal delivery) (~10/27/11) UTI (urinary tract infection) Family History Grandfather Lymph node cancer Grandfather Cancer of kidney Social History (System 02/06/18 @ 08:58 by Kyle Sanderson) marital status: number of children: 3 household members: spouse and children occupational status: unemployed current occupational exposures/hazards: No Smoking Status: Never smoker Meds Home Medications and Allergies Home Medications Medication Instructions Recorded Confirmed Type Mynatal 1 cap PO QDAY #0 06/19/17 04/16/20 History Allergies Allergy/AdvReac Type Severity Reaction Status Date / Time No Known Allergies Allergy Unknown Uncoded 04/16/20 12:01 Exam Vital Signs (past 8 hours): - 04/16/20 11:58 Blood Pressure 113/70 Const General: cooperative, healthy appearing and comfortable Orientation: alert, awake and oriented x3 Resp Effort & Inspection: normal respiratory effort Auscultation: clear to auscultation bilaterally Cardio Rate: regular rate Rhythm: regular rhythm Heart Sounds: S1 normal, S2 normal and no murmurs GI Inspection: non-distended Palpation: soft and No tender Other: gravid Presentation: vertex Estimated Weight (lbs): 9 Extrem General: no clubbing, cyanosis or edema Objective Labs Result Diagrams: 04/16/20 08:20 Labs: Laboratory Results - last 24 hr 04/16/20 04/16/20 04/16/20 08:20 08:20 08:20 WBC 11.1 H RBC 3.92 L Hgb 12.0 Hct 35.6 L MCV 90.8 MCH 30.5 MCHC 33.6 RDW 13.4 Plt Count 189 Neut % (Auto) 74.2 Lymph % (Auto) 18.2 L [place] % (Auto) 6.5 Eos % (Auto) 0.6 L Baso % (Auto) 0.5 Neut # (Auto) 8200 H Lymph # (Auto) 2000 [place] # (Auto) 700 Eos # (Auto) 100 Baso # (Auto) 100 SARS-CoV-2 (PCR) Negative Blood Type O Positive Antibody Screen Negative Assessment and Plan Assessment and Plan Assessment and Plan narrative: 30yo at 40w4d here for elective post-dates IOL. No complications with . Rh positive, GBS positive. - Expectant management, anticipate - GBS positive, start penicillin prophylaxis now - Start pitocin, titrate as tolerated. Plan to AROM once GBS prophylaxis adequate. - FHT reassuring - Epidural when desired
[2020-04-16] MEDS: FENT 2MCG/ML BUPIV 0.125% EPI 200 MCG/100 ML PLAST..BAG 12 MCG EPIDURAL (14:11)
[2020-04-16] MEDS: fentaNYL 100 MCG/2 ML INJ (14:20)
--- NOTE | 2020-04-16 17:08 | PM.OBPRVD ---
Labor & Delivery Delivery date: 04/16/20 Intrapartal events: None Estimated blood loss (mL): 400 Complications: None Narrative: PROCEDURE: at 40w4d presented for elective post-dates IOL and was admitted to Labor and Delivery. The patient progressed through the 1st stage over 3 hours. Pitocin was initiated. The pt received adequate GBS prophylaxis with penicillin, and AROM was performed with production of clear fluid. Pain was controlled with an epidural. The patient progressed through the 2nd stage over 30 minutes and delivered a viable male infant with APGARs 9/9 at 16:29 via . The perineum and vagina were inspected with 2nd degree laceration repaired with 2-O Chromic. PREPROCEDURE DIAGNOSIS: Intrauterine at 40w4d GBS positive RH positive POSTPROCEDURE DIAGNOSIS: Intrauterine at 40w4d, delivered Same as preprocedure PROCEDURE: Spontaneous vaginal delivery INDUCTION: Yes LABOR AUGMENTATION: Pitocin, AROM ROM APPEARANCE: Clear BABY A DELIVERY TIME: 16:29 BABY A OUTCOME: Viable BABY A SEX: Male BABY A WEIGHT: 9lb2.2oz BABY A PRESENTATION: Vertex BABY A POSITION: OA BABY A NUCHAL CORD: None BABY A # CORD VESSELS: 3 BABY A CORD GASES OBTAINED: No PLACENTA DELIVERY TIME: 16:34 PLACENTAL DELIVERY TYPE: Spontaneous PLACENTA APPEARANCE: Intact Baby 1: Infant gender: Male score (1 min): 9 score (5 min): 9 Plan for aftercare: Normal care
[2020-04-16] MEDS: LANOLIN OINT 7 GM 1 APPLIC TOP (19:23)
[2020-04-17] MEDS: PRENATAL VIT,CALC/IRON/FOLIC 1 TABLET 1 TAB PO (09:18)
[2020-04-17] MEDS: DOCUSATE 100 MG CAPSULE PO (09:18)
--- NOTE | 2020-04-17 10:43 | P.DS_ITS ---
Discharge Providers Provider Date of admission: 04/16/20 07:34 Discharge Date: 04/17/20 Primary care physician: Alma Mckinley MD Consults: 04/17/20 17:07 Consult to Electric Track Switch Maintainer Routine Comment: Discharge provider: Alma Mckinley MD Summary Hospital Course Date Patient Seen: 04/17/20 Time Patient Seen: 10:43 Procedures: Spontaneous vaginal delivery Hospital Course: The patient was admitted for elective induction of labor for post dates. She received Pitocin. GBS prophylaxis was given with penicillin. AROM was performed with production of clear fluid. The patient progressed to complete and had spontaneous vaginal delivery of a viable baby boy on 04/16/2020. There were no complications with delivery. A 2nd degree perineal laceration was repaired. , there were no complications. The patient was voiding, ambulating, passing flatus without difficulty at discharge. Her lochia was decreasing appropriately. Her pain was adequately controlled. She is breast- feeding with good latch. She will follow-up for her 6 week check. She desires an IUD for contraception. Peripartum Data Delivery Method: Natural Vaginal Laceration Description: Perineal - 2nd Degree Episiotomy description: None Procedures: Spontaneous vaginal delivery complications: none [place] 1: Gender: Male Disposition of : home Discharge Diagnosis (1) (spontaneous vaginal delivery): Status: Acute Problem Details: 12/08/2013 and 01/15/18 Time Spent with Patient Time attestation: Total time spent providing and/or coordinating discharge services: Objective Labs Result Diagrams: 04/16/20 08:20 Exam Narrative Exam Narrative: Gen: NAD, sitting comfortably in bed, appears well CV: RRR, no murmurs Resp: clear to auscultation bilaterally Abd: soft, appropriately tender, fundus firm and below the umbilicus, nondistended Ext: no edema Resp Auscultation: clear to auscultation bilaterally Cardio Rate: regular rate Rhythm: regular rhythm Heart Sounds: S1 normal, S2 normal and no murmurs GI Inspection: non-distended Palpation: soft, No guarding and tender (appropriately tender) Auscultation: normal bowel sounds Other: fundus firm and below the umbilicus Extrem Right upper extremity: no edema Discharge Plan Discharge Plan Patient Disposition: Home Discharge orders & Medications Prescriptions: Continued Mynatal 1 EACH capsule 1 cap PO QDAY Qty: 0 RF: 0 Follow up/Referrals: Alma Mckinley MD [Primary Care Provider] - 6 Weeks Diet/Activity/Treatments Diet: Diet as Tolerated and Regular Skin/Wound/Dressing Care Report to your healthcare provider any signs of infection, such as:: chills, fever, increased pain and unusual drainage Visit Report/Discharge Packet Instructions: DI for Labor and Delivery, Vaginal Stand Alone Forms: Discharge: Care Visit Report Forms: Patient Portal/API, Stroke Signs & Symptoms Discharge Data Primary Care Provider: lAma Mckinley
[2020-04-17 16:14] VITALS: BP 118/71; PULSE 68; RESP 16; TEMP 36.4
== END 2020-04-17 17:25 | disposition home or self-care (01) | DRG 806 ==
PROVIDERS: Admitting Provider Family Medicine; PCP Family Medicine; Referring Provider Family Medicine; Visit Provider Family Medicine
DX: O48.0 Post-term pregnancy (principal); O98.32 Other infections with a predominantly sexual mode of transmission complicating childbirth; Z37.0 Single live birth; B00.9 Herpesviral infection, unspecified; Z3A.40 40 weeks gestation of pregnancy; O99.824 Streptococcus B carrier state complicating childbirth; O70.1 Second degree perineal laceration during delivery; Z20.822 Contact with and (suspected) exposure to COVID-19
CPT/HCPCS: 01967; 36415; 59050; 59400; 85025; 86850; 86900; 86901; 87635; C9803; G0379; J2540; J2590; J3010

== ENCOUNTER → 2021-10-17 16:41 | Outpatient (CLI) | payer OTHER, SELFPAY | PROVIDERS: PCP Family Medicine; Visit Provider Physician Assistant | DX: R30.0 Dysuria (principal) | CPT/HCPCS: 87077; 87086; 87186 ==

== ENCOUNTER → 2021-10-27 07:19 | Outpatient (CLI) | payer OTHER, SELFPAY | PROVIDERS: PCP Family Medicine; Visit Provider Physician Assistant | DX: N39.0 Urinary tract infection, site not specified (principal) | CPT/HCPCS: 87077; 87086; 87186 ==

== ENCOUNTER 2022-11-23 12:03 | Day surgery (SDC) | payer OTHER, SELFPAY ==
[2022-11-23] VITALS (7 sets, daily range): BP systolic 86–121; BP diastolic 53–81; PULSE 50–63; RESP 12–17; TEMP 36.6; O2SAT 98–100; BMI 22.6
--- NOTE | 2022-11-23 | PATH_ITS ---
[facility] Accession Number: [id number] No. of containers..06 Tissue . 01 Material submitted: . PART A: duodenum - DUODENUM PART B: stomach - ANTRUM PART C: ileum - TERMINAL ILEUM PART D: colon - RIGHT COLON PART E: colon - LEFT COLON PART F: rectum - RECTUM . 01 Diagnosis: A. DUODENUM, BIOPSY: - DUODENAL MUCOSA WITH REACTIVE CHANGES SUGGESTIVE OF PEPTIC DUODENITIS AND CANNOT RULE OUT CELIAC DISEASE, (SEE COMMENT) - NO H. PYLORI LIKE ORGANISMS IDENTIFIED (BY THE H/E AND IMMUNOHISTOCHEMICAL STAINED SLIDE SECTIONS) - NO DYSPLASIA OR MALIGNANCY IDENTIFIED --- . B: STOMACH, ANTRUM, BIOPSY: - ANTRAL GASTRIC MUCOSA, WITH NO HISTOLOGIC ABNORMALITIES - NO H. PYLORI LIKE ORGANISMS IDENTIFIED (ON THE H/E STAINED SECTIONS) - NEGATIVE FOR GASTRITIS, INTESTINAL METAPLASIA, DYSPLASIA OR MALIGNANCY --- C. TERMINAL ILEUM, BIOPSY: - BENIGN SMALL INTESTINAL MUCOSA WITH UNREMARKABLE LYMPHOID AGGREGATE - NEGATIVE FOR CHRONIC OR ACTIVE ILEITIS --- D. COLON, RIGHT, BIOPSY: - COLONIC MUCOSA WITH FOCALLY INCREASED INTRAEPITHELIAL LYMPHOCYTES. SEE COMMENT. --- E. COLON, LEFT, BIOPSY: - COLONIC MUCOSA WITH FOCALLY INCREASED INTRAEPITHELIAL LYMPHOCYTES. SEE COMMENT. --- F. RECTUM, BIOPSY: - BENIGN COLONIC MUCOSA - NEGATIVE FOR MICROSCOPIC COLITIS --- COMMENT FOR PART A: Duodenal mucosa with focal reactive changes including mild villous blunting, prominent Vanesa's glands, and focal gastric foveolar metaplasia. There is also a slight increase in cellularity of the lamina propria, with a mixed chronic inflammatory infiltrate. There is mild increase in intraepithelial lymphocytes seen, and cannot rule out celiac disease. These features are not specific but raise suspicion of celiac disease therefore correlation with serologic studies is recommended. No Giardia or other infectious organisms are identified. H. pylori immunohistochemical stain was performed on part A and is negative. --- COMMENT FOR PART D AND E: Colonic mucosa with intact crypt architecture and no active neutrophilic inflammation. In some areas there is an increase in intraepithelial lymphocytes in the surface and crypt epithelium and mild reactive epithelial changes. There is no apparent thickening of the subepithelial collagen table. The histologic differential includes lymphocytic colitis, a resolving infectious process, or drug effect, among other possibilities. Clinical correlation is recommended. . TECHNICAL NOTE: THE IMMUNOHISTOCHEMICAL STAINS REPORTED WERE PERFORMED AT [facility] ([address], [facility] [id number]). THEY WERE DEVELOPED AND THEIR PERFORMANCE CHARACTERISTICS DETERMINED BY [employer]. THEY HAVE NOT BEEN CLEARED OR APPROVED BY THE [employer], ALTHOUGH SUCH APPROVAL IS NOT REQUIRED FOR ANALYTE-SPECIFIC REAGENTS OF THIS TYPE. [facility] 12/07/2022 14[facility] . 01 Electronically signed: . Keiko Mathias MD, Pathologist NPI- [id number] . 01 Gross description: . Part A: DUODENUM: Received in formalin is 5 fragment(s) of dozier, soft tissue measuring 0.2 x 0.2 x 0.1 cm to 0.2 x 0.1 x 0.1 cm submitted entirely in 1 cassette(s) Part B: ANTRUM: Received in formalin is 2 fragment(s) of dozier, soft tissue measuring 0.2 x 0.2 x 0.1 cm to 0.2 x 0.1 x 0.1 cm submitted entirely in 1 cassette(s) Part C: TERMINAL ILEUM: Received in formalin is 4 fragment(s) of dozier, soft tissue measuring 0.3 x 0.2 x 0.1 cm to 0.1 x 0.1 x 0.1 cm submitted entirely in 1 cassette(s) Part D: RIGHT COLON: Received in formalin is 4 fragment(s) of dozier, soft tissue measuring 0.3 x 0.1 x 0.1 cm to 0.1 x 0.1 x 0.1 cm submitted entirely in 1 cassette(s) Part E: LEFT COLON: Received in formalin is 2 fragment(s) of dozier, soft tissue measuring 0.3 x 0.2 x 0.1 cm to 0.2 x 0.2 x 0.1 cm submitted entirely in 1 cassette(s) Part F: RECTUM: Received in formalin is 2 fragment(s) of dozier, soft tissue measuring 0.3 x 0.2 x 0.1 cm to 0.2 x 0.2 x 0.1 cm submitted entirely in 1 cassette(s) /AAY 11/24/2022 0549 [facility] . 01 Pathologist provided ICD-10: R19.4 . 01 CPT . 680895, 843556, 242905, 062335, 520651, [id number], [id number] Specimen Comment: A courtesy copy of this report has been sent to [phone] Performed at: 01 [facility] [address] [place] [address], [place], [place] [id number] MD Nicolas Mcmillan MD Phone: [phone]
[2022-11-23] MEDS: LACTATED RINGERS 1,000 ML 42 ML IV (13:15)
--- NOTE | 2022-11-23 14:48 | PM.PREOP ---
Pre-operative Note COVID-19 COVID-19 status: Not tested Interval Note History & Physical reviewed/Exam performed by Physician: Yes Changes to H&P: No ASA Class (for procedural sedation): I
--- NOTE | 2022-11-23 15:38 | PM.OP.EC ---
Operative Date/Time/Diagnoses Date of procedure: 11/23/22 Time of procedure: 15:38 Pre-op diagnosis: Change in bowel habits Post-op diagnosis: same Procedure & Clinicians Study performed: EGD and colonoscopy Same procedure as scheduled: Yes Surgeon: Kyle Luna Procedure Notes Procedure in detail: Surgeon: Kyle Luna MD Anesthesia: Dashawn Montano CRNA Procedure in detail: A timeout was performed. A bite blocked was placed and monitors were attached to the patient. The patient was positioned in a left lateral decubitus position. Sedation was administered. Once the patient was sedated the endoscope was inserted through the bite block and passed through the esophagus and stomach and into the duodenum. There was some mild cobblestone appearance in the duodenal and random biopsies were taken from the duodenal and the duodenal bulb. We then withdrew the scope into the stomach. There was no obvious antritis but random biopsies were taken from the antrum. The endoscope was retroflexed and no hiatal hernia was seen. The endoscope was straightned and withdrawn into the esophagus. No abnormalities were seen. Findings: Mild cobblestone appearance of portions of the duodenal bulb Next we repositioned the patient for a colonoscopy. A digital rectal exam was performed and was normal. The colonoscope was inserted and advanced to the cecum. The appendiceal orifice was identified and photographed. The terminal ileum was intubated and the mucosa appeared normal. Random biopsies were taken from the terminal ileal mucosa. The scope was slowly withdrawn over greater than 6 minutes. Random biopsies were taken from the right colon left colon and rectum. Was more of that mild cobblestone appearance in the lower sigmoid and rectum where we took random biopsies. The scope was retroflexed in the rectum and no other abnormalities were seen. Findings: Normal terminal ileum and some mild cobblestone appearance in the rectosigmoid region EBL: 5 mL Scope withdrawal time: 14 minutes Sedation minutes: 29 minutes Post-procedure Disposition: PACU
== END 2022-11-23 16:47 | disposition home or self-care (01) ==
PROVIDERS: PCP Family Medicine; Referring Provider Surgery; Visit Provider Surgery
PROC: 0DJ08ZZ Inspection of Upper Intestinal Tract, Via Natural or Artificial Opening Endoscopic (ICD-10-PCS; CPT 43235; principal; 2022-11-23 13:00)
PROC: 0DJD8ZZ Inspection of Lower Intestinal Tract, Via Natural or Artificial Opening Endoscopic (ICD-10-PCS; CPT 45378; 2022-11-23 13:00)
DX: R19.4 Change in bowel habit (principal)
CPT/HCPCS: 45380; J2704

== ENCOUNTER → 2022-12-15 10:45 | Outpatient (CLI) | payer OTHER, SELFPAY ==
[2022-12-16 19:10] LABS: Deamidated Gliadin Ab IgA 14 units (0-19); Deamidated Gliadin Ab IgG 20 units (0-19); Immunoglobulin A,Qn 108 mg/dL (87-352); t-Transglutaminase IgA 19 U/mL (0-3)
== END ==
PROVIDERS: PCP Family Medicine; Referring Provider Surgery; Visit Provider Surgery
DX: R19.5 Other fecal abnormalities (principal)
CPT/HCPCS: 36415; 82784; 83516